=== PATIENT | male | born 1960 | race African-American/Black ===

== ENCOUNTER 2019-10-16 16:58 | Inpatient (IN) | payer OTHER ==
[2019-10-16 20:34] VITALS: BMI 24.9
--- NOTE | 2019-10-16 21:51 | HP ---
COWS - Scale Resting Pulse: 2= NC 101-120 Sweatin=Flushed/Facial Moisture Restless Observation: 1= Difficult to Sit Still Pupil Size: 1= Pupils >than Normal Bone or Joint Aches: 0= None Runny Nose/ Eye Tearin= Runny Nose/Eyes GI Upset > 30mins: 2= Nausea/Diarrhea (diarrhea x 3) Tremor Observation: 2= Slight Tremor Visible Yawning Observation: 2= >3x During Session Anxiety or Irritability: 2=Irritable/Anxious Goose Flesh Skin: 0=Smooth Skin COWS Score: 16 CIWA Score - Admission Criteria OASAS Guidelines: Admission for Medically Managed Detox: Requires at least one of the followin. CIWA greater than 12 2. Seizures within the past 24 hours 3. Delirium tremens within the past 24 hours 4. Hallucinations within the past 24 hours 5. Acute intervention needed for co occurring medical disorder 6. Acute intervention needed for co occurring psychiatric disorder 7. Severe withdrawal that cannot be handled at a lower level of care (continued vomiting, continued diarrhea, abnormal vital signs) requiring intravenous medication and/or fluids 8. Admitting History and Physical - Smoking History Smoking history: Current every day smoker Have you smoked in the past 12 months: Yes Aproximately how many cigarettes per day: 10 Admission ROS [facility] Chief Complaint: Seeking admission to detox from heroin Allergies/Adverse Reactions: Allergies Allergy/AdvReac Type Severity Reaction Status Date / Time No Known Allergies Allergy Verified 10/16/19 20:24 History of Present Illness: 59 years old male with a long history of heroin dependence (since age 15 years) is seeking admission to detox. This is his first admission to [facility] and he reports that his last admission was at [facility]. He reports use of 10 bags of heroin daily and states that he drinks socially once in a while and had only a can of beer today. He has medical history of DM type 2, hypertension, BPH, Hyperlipidemia and psych. history of anxiety and depression. He denies + eye applications tester, alcohol related seizures, blackouts and overdose. He is employed with [employer], lives with his and denies legal issues Exam Limitations: No Limitations - Ebola screening Have you traveled outside of the country in the last 21 days: No Have you had contact with anyone from an Ebola affected area: No Have you been sick,other than usual withdrawal symptoms: No - Review of Systems Constitutional: Chills, Malaise, Changes in sleep EENT: reports: No Symptoms Reported Respiratory: reports: No Symptoms reported Cardiac: reports: No Symptoms Reported GI: reports: Diarrhea (x 3), Nausea, Poor Appetite, Poor Fluid Intake, Abdominal cramping : reports: No Symptoms Reported Musculoskeletal: reports: No Symptoms Reported Integumentary: reports: Dryness, Flushing Neuro: reports: Tremors Endocrine: reports: No Symptoms Reported Hematology: reports: No Symptoms Reported Psychiatric: reports: Mood/Affect Appropiate, Orientated x3 Other Systems: Reviewed and Negative Patient History - Patient Medical History Hx Anemia: No Hx Asthma: No Hx Chronic Obstructive Pulmonary Disease (COPD): No Hx Cancer: No Hx Cardiac Disorders: No Hx Hypertension: Yes (Lisinopril) Hx Hypercholesterolemia: Yes (Lipitor) Hx Pacemaker: No Hx Seizures: No Hx Dementia: No Hx Diabetes: Yes Hx Gastrointestinal Disorders: No Hx Liver Disease: No Hx Genitourinary Disorders: Yes (BPH) Hx Sexually Transmitted Disorders: No Hx Renal Disease (ESRD): No Hx Thyroid Disease: No Hx Human Immunodeficiency Virus (HIV): No (Negative 2019) Hx Hepatitis C: No Hx Depression: Yes (+ anxiety- not on medication) Hx Suicide Attempt: No (Denies suicidal ideation at this time) Hx Bipolar Disorder: No Hx Schizophrenia: No - Patient Surgical History Past Surgical History: Yes Hx Orthopedic Surgery: Yes (Lumbofusion 10 years ago) Anesthesia Reaction: No - PPD History Previous Implant?: Yes Documented Results: Negative w/o proof Implanted On Prior R Admission?: No PPD to be Administered?: Yes - Reproductive History Patient is a Female of Child Bearing Age (11 -55 yrs old): No (Male) - Smoking Cessation Smoking history: Current every day smoker Have you smoked in the past 12 months: Yes Aproximately how many cigarettes per day: 10 Hx Chewing Tobacco Use: No Initiated information on smoking cessation: Yes 'Breaking Loose' booklet given: 10/16/19 - Substance & Tx. History Hx Alcohol Use: Yes Hx Substance Use: Yes Substance Use Type: Cocaine, Heroin, Opiates Hx Substance Use Treatment: Yes ([facility].) - Substances abused Heroin Substance route: Inhalation Frequency: Daily Amount used: 10 BAGS Age of first use: 15 Date of last use: 10/16/19 Alcohol Substance route: Oral Frequency: 3-6 times per week Amount used: BEER- 1 16 oz.can of beer Age of first use: 15 Date of last use: 10/16/19 Admission Physical Exam [facility] - Vital Signs Vital Signs: Vital Signs - 24 hr 10/16/19 20:28 Temperature 97.6 F Pulse Rate 105 H Respiratory 18 Rate Blood Pressure 126/79 - Physical General Appearance: Yes: Moderate Distress, Tremorous, Irritable, Anxious HEENTM: Yes: Within Normal Limits, Nasal Congestion Respiratory: Yes: Lungs Clear, Normal Breath Sounds, No Respiratory Distress Neck: Yes: Within Normal Limits Breast: Yes: Breast Exam Deferred Cardiology: Yes: Tachycardia Abdominal: Yes: Within Normal Limits, Protuberent Genitourinary: Yes: Within Normal Limits Back: Yes: Normal Inspection Musculoskeletal: Yes: Within Normal Limits Extremities: Yes: Tremors Neurological: Yes: Within Normal Limits, Alert, Normal Response Integumentary: Yes: Warm Lymphatic: Yes: Within Normal Limits - Diagnostic (1) Opioid dependence with withdrawal Current Visit: Yes Status: Acute (2) DM type 2 (diabetes mellitus, type 2) Current Visit: Yes Status: Chronic Qualifiers: Diabetes mellitus alf insulin use: unspecified termite treater helper insulin use status (3) Hypertension Current Visit: Yes Status: Chronic Qualifiers: Hypertension type: essential hypertension Qualified Code(s): I10 - Essential (primary) hypertension (4) Depression Current Visit: Yes Status: Resolved Qualifiers: Depression Type: unspecified Qualified Code(s): F32.9 - Major depressive disorder, single episode, unspecified (5) Anxiety Current Visit: Yes Status: Chronic (6) Hyperlipidemia Current Visit: Yes Status: Chronic Qualifiers: Hyperlipidemia type: unspecified Qualified Code(s): E78.5 - Hyperlipidemia, unspecified (7) BPH (benign prostatic hyperplasia) Current Visit: Yes Status: Chronic Qualifiers: Lower urinary tract symptom presence: unspecified whether lower urinary tract symptoms present Qualified Code(s): N40.0 - Benign prostatic hyperplasia without lower urinary tract symptoms Cleared for Admission [facility] - Detox or Rehab [facility] Level of Care: Medically Managed Detox Regimen/Protocol: Methadone Claeared for Rehab Admission: No Breathalyzer - Breathalyzer Breathalyzer: 0 Urine Drug Screen - Test Device Lot number: [id number] Expiration date: 12/17/20 - Control Is test valid?: Yes - Results Drug screen NEGATIVE: No Urine drug screen results: YONNY-Cocaine, FEN-Fentanyl, MOP-Opiates, MTD-Methadone Inpatient Rehab Admission - Rehab Decision to Admit Inpatient rehab admission?: No
[2019-10-16] MEDS ORDERED: MAGNESIUM HYDROX 2400MG/30ML ORAL SUSPENSION 30 ML CUP PO PRN (22:59)
[2019-10-16] MEDS ORDERED: ACETAMINOPHEN 325 MG TABLET (FP) PO PRN ×2 (22:59)
[2019-10-16] MEDS ORDERED: METHADONE HCL 10 MG TABLET (FOR DETOX USE ONLY) PO ONE (22:59)
[2019-10-16] MEDS ORDERED: cloNIDine HCL 0.1 MG TABLET PO PRN (22:59)
[2019-10-16] MEDS ORDERED: MAG HYDROX/AL HYDROX/SIMETH 30 ML UNIT-DOSE CUP PO PRN (22:59)
[2019-10-16] MEDS ORDERED: METHOCARBAMOL 500 MG TABLET PO PRN (22:59)
[2019-10-16] MEDS ORDERED: MENTHOL/PHENOL 1 EACH UD MM PRN (22:59)
[2019-10-16] MEDS ORDERED: MAGNESIUM CITRATE 300 ML BOTTLE PO PRN (22:59)
[2019-10-16] MEDS ORDERED: ONDANSETRON *ODT* 4 MG TABLET SL ONE (22:59)
[2019-10-16] MEDS ORDERED: IBUPROFEN 400 MG TABLET (FP) PO PRN (22:59)
[2019-10-16] MEDS ORDERED: NICOTINE POLACRILEX 2 MG GUM BUC PRN (22:59)
[2019-10-16] MEDS ORDERED: BISMUTH SUBSALICYLATE 524 MG/30 ML UD PO PRN (22:59)
[2019-10-17] MEDS: metFORMIN HCL 500 MG TABLET (FP) PO SCH ×2 (06:43→16:41)
[2019-10-17] MEDS ORDERED: METHADONE HCL 10 MG TABLET (FOR DETOX USE ONLY) ONE (08:39)
[2019-10-17] MEDS ORDERED: METHADONE HCL 5 MG TABLET (FOR DETOX USE ONLY) ONE (08:39)
[2019-10-17] MEDS ORDERED: METHADONE (DETOX) 20 MG, METHADONE (DETOX) 5 MG PO ONE (10:00)
[2019-10-17] MEDS ORDERED: PATIENT'S OWN MEDICATION (NON-FORMULARY) (Lisinopril [Prinivil -] 20 MG) PO SCH (10:00)
--- NOTE | 2019-10-17 10:13 | EKG ---
Test Reason : Blood Pressure : / mmHG Vent. Rate : 089 BPM Atrial Rate : 089 BPM P-R Int : 152 ms QRS Dur : 080 ms QT Int : 356 ms P-R-T Axes : 057 032 001 degrees QTc Int : 433 ms NORMAL SINUS RHYTHM SEPTAL INFARCT , AGE UNDETERMINED ABNORMAL ECG NO PREVIOUS ECGS AVAILABLE Confirmed by Soy Yousif MD ([id number]) on 10/17/2019 10:13:42 AM Referred By: Confirmed By:Soy Yousif MD
[2019-10-17] MEDS: amLODIPine BESYLATE 10 MG TABLET (FP) PO SCH (10:19)
[2019-10-17] MEDS: LISINOPRIL 20 MG TABLET (FP) PO SCH (10:19)
[2019-10-17] MEDS: PRENATAL VITAMINS W/ FOLIC ACID TABLET (FP) PO SCH (10:20)
[2019-10-17] MEDS: ASPIRIN 81 MG CHEWABLE TABLETS PO SCH (10:20)
[2019-10-17] MEDS: hydrOXYzine PAMOATE 25 MG CAPSULE (FP) PO PRN ×2 (10:20→21:04)
[2019-10-17] MEDS: TAMSULOSIN HCL 0.4 MG CAP PO SCH (10:21)
[2019-10-17] MEDS: NICOTINE 14 MG/24 HOURS TOPICAL PATCH TD SCH (10:22)
[2019-10-17 11:27] LABS: HEMATOCRIT 34.8 % (35.4-49); HEMOGLOBIN 11.7 GM/dL (11.7-16.9); MCH 31.8 pg (25.7-33.7); MCHC 33.5 g/dl (32.0-35.9); MEAN CELL VOLUME 94.9 fl (80-96); MEAN PLT VOLUME 9.7 fl (7.5-11.1); PLATELET COUNT 182 K/MM3 (134-434); RBC 3.67 M/mm3 (4.00-5.60); RDW 13.3 % (11.9-15.9); WHITE BLOOD COUNT 5.2 K/mm3 (4.0-10.0)
[2019-10-17 11:35] LABS: ALBUMIN 3.2 g/dl (3.4-5.0); BILIRUBIN,TOTAL 0.8 mg/dL (0.2-1); BLOOD UREA NITROGEN 14.9 mg/dL (7-18); CALCIUM 8.8 mg/dL (8.5-10.1); CREATININE 1.1 mg/dL (0.55-1.3); POTASSIUM 4.3 mmol/L (3.5-5.1); TOT PROT 6.7 g/dl (6.4-8.2)
--- NOTE | 2019-10-17 11:36 | PN ---
BHS COWS - Scale Resting Pulse: 1= RI 81-100 Sweatin= Chills/Flushing Restless Observation: 0= Sits Still Pupil Size: 0= Normal to Room Light Bone or Joint Aches: 4=Acute Joint/Muscle Pain Runny Nose/ Eye Tearin= None GI Upset > 30mins: 0= None Tremor Observation of Outstretched Hands: 1= Tremor [place], Not Seen Yawning Observation: 1= 1-2x During Session Anxiety or Irritability: 2=Irritable/Anxious Goose Flesh Skin: 0=Smooth Skin COWS Score: 10 BHS Progress Note (SOAP) Subjective: Pt is a 59 y/o male admitted to detox for withdrawal sx from heroin. On Methadone regimen. As per H/H pt also drinking one can of beer 3-6x/week. Objective: 10/17/19 11:33 Vital Signs - 24 hr 10/16/19 10/17/19 10/17/19 20:28 00:10 00:35 Temperature 97.6 F 97.8 F Pulse Rate 105 H 98 H Respiratory 18 20 Rate Blood Pressure 126/79 152/86 O2 Sat by Pulse 97 Oximetry (%) 10/17/19 10/17/19 10/17/19 03:30 06:30 10:09 Temperature 98 F Pulse Rate 93 H Respiratory 18 18 Rate Blood Pressure 160/99 154/83 O2 Sat by Pulse 97 Oximetry (%) 10/17/19 11:15 Temperature 98.1 F Pulse Rate 91 H Respiratory 16 Rate Blood Pressure 171/96 H O2 Sat by Pulse 95 Oximetry (%) Laboratory Tests 10/17/19 10/17/19 06:41 08:15 WBC 5.2 RBC 3.67 L Hgb 11.7 Hct 34.8 L MCV 94.9 MCH 31.8 MCHC 33.5 RDW 13.3 Plt Count 182 MPV 9.7 POC Glucometer 256 other labs pending Assessment: 10/17/19 11:33 withdrawal sx alert o x 3 nad oob ambulating with steady gait Plan: cont detox maintain safety increase po fluids Valium prn
[2019-10-17] MEDS: THIAMINE HCL 100 MG TABLET (FP) PO SCH (21:03)
[2019-10-17] MEDS: ATORVASTATIN CA 20 MG TABLET (FP) PO SCH (21:04)
[2019-10-17] MEDS: MELATONIN 5 MG TABLETS PO SCH (21:04)
[2019-10-17] MEDS: diazePAM 5 MG TABLET PO PRN (21:05)
[2019-10-18] MEDS: metFORMIN HCL 500 MG TABLET (FP) PO SCH ×2 (06:25→16:33)
[2019-10-18] MEDS ORDERED: METHADONE HCL 10 MG TABLET (FOR DETOX USE ONLY) PO ONE (10:00)
[2019-10-18] MEDS: NICOTINE 14 MG/24 HOURS TOPICAL PATCH TD SCH (10:16)
[2019-10-18] MEDS: TAMSULOSIN HCL 0.4 MG CAP PO SCH (10:16)
[2019-10-18] MEDS: amLODIPine BESYLATE 10 MG TABLET (FP) PO SCH (10:16)
[2019-10-18] MEDS: PRENATAL VITAMINS W/ FOLIC ACID TABLET (FP) PO SCH (10:16)
[2019-10-18] MEDS: ASPIRIN 81 MG CHEWABLE TABLETS PO SCH (10:16)
[2019-10-18] MEDS: LISINOPRIL 20 MG TABLET (FP) PO SCH (10:16)
--- NOTE | 2019-10-18 11:22 | PN ---
BHS COWS - Scale Resting Pulse: 1= IN 81-100 Sweatin= Chills/Flushing Restless Observation: 3= Extraneous Movement Pupil Size: 0= Normal to Room Light Bone or Joint Aches: 4=Acute Joint/Muscle Pain Runny Nose/ Eye Tearin= None GI Upset > 30mins: 0= None Tremor Observation of Outstretched Hands: 1= Tremor [place], Not Seen Yawning Observation: 0= None Anxiety or Irritability: 2=Irritable/Anxious Goose Flesh Skin: 0=Smooth Skin COWS Score: 12 BHS Progress Note (SOAP) Subjective: c/o anxiety irritability body/bone aches Objective: 10/18/19 11:23 Vital Signs 10/18/19 10/18/19 10/18/19 03:30 06:22 09:32 Temperature 97.3 F L 98.9 F Pulse Rate 100 H 86 Respiratory 16 18 16 Rate Blood Pressure 158/86 157/89 O2 Sat by Pulse 96 96 Oximetry (%) Laboratory Tests 10/17/19 10/17/19 10/17/19 06:41 08:15 08:15 WBC 5.2 RBC 3.67 L Hgb 11.7 Hct 34.8 L MCV 94.9 MCH 31.8 MCHC 33.5 RDW 13.3 Plt Count 182 MPV 9.7 Sodium Potassium Chloride Carbon Dioxide Anion Gap BUN Creatinine Est GFR (CKD-EPI)AfAm Est GFR (CKD-EPI)NonAf POC Glucometer 256 Random Glucose Calcium Total Bilirubin AST ALT Alkaline Phosphatase Total Protein Albumin Syphilis Serology Non-reactive 10/17/19 10/17/19 10/18/19 08:15 16:39 06:48 WBC RBC Hgb Hct MCV MCH MCHC RDW Plt Count MPV Sodium 139 Potassium 4.3 Chloride 105 Carbon Dioxide 32 Anion Gap 3 L BUN 14.9 Creatinine 1.1 Est GFR (CKD-EPI)AfAm 83.53 Est GFR (CKD-EPI)NonAf 72.07 POC Glucometer 198 159 Random Glucose 258 H Calcium 8.8 Total Bilirubin 0.8 AST 9 L ALT 11 L Alkaline Phosphatase 99 Total Protein 6.7 Albumin 3.2 L Syphilis Serology Assessment: 10/18/19 11:23 withdrawal sx Plan: cont detox increase po fluids maintain safety
--- NOTE | 2019-10-18 13:39 | CONSULT ---
[facility] Psychiatric Consult - Data Date of interview: 10/18/19 Identifying data: Mr Hernandez is a 59 years old Black male seeking detox treatment for alcohol and opioid Substance Abuse History: Reports history of alcohol and heroin use. Refer to addiction counselor's summary for further information Medical History: Significant for hypertension, dyslipidemia, type 2 diabees mellitus, BPH and history of lumbat fusion 10 years ago Psychiatric History: Patient was approached by both PHLEBOTOMY DIRECTOR and story writer yesterday and he said that he was too tired.He was approached today in his room and he told story writer:" I don't want to see psychiatrist"
--- NOTE | 2019-10-18 15:47 | PN ---
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 Last taken 10/16/19 and verified by keno writer / runner and nurse Angely-pt brought own bottle of medication last filled on 09/28/19 #90 with [address] Aly, [place], [place](saved in security safe). Pt reports takes it for pain management. P:Restart Gabapentin 800 mg po TID. Pt will not need any Rx on discharge as his own med is saved in his property.
[2019-10-18] MEDS: THIAMINE HCL 100 MG TABLET (FP) PO SCH (21:53)
[2019-10-18] MEDS: MELATONIN 5 MG TABLETS PO SCH (21:53)
[2019-10-18] MEDS: ATORVASTATIN CA 20 MG TABLET (FP) PO SCH (21:53)
[2019-10-18] MEDS: GABAPENTIN 400 MG CAPSULE PO SCH (21:53)
[2019-10-18] MEDS: diazePAM 5 MG TABLET PO PRN (21:55)
[2019-10-19] MEDS: GABAPENTIN 400 MG CAPSULE PO SCH ×3 (06:41→22:05)
[2019-10-19] MEDS: metFORMIN HCL 500 MG TABLET (FP) PO SCH ×2 (06:41→17:22)
[2019-10-19] MEDS ORDERED: METHADONE HCL 5 MG TABLET (FOR DETOX USE ONLY) ONE (08:53)
[2019-10-19] MEDS ORDERED: METHADONE HCL 10 MG TABLET (FOR DETOX USE ONLY) ONE (08:53)
[2019-10-19] MEDS ORDERED: METHADONE (DETOX) 10 MG, METHADONE (DETOX) 5 MG PO ONE (10:00)
[2019-10-19] MEDS: LISINOPRIL 20 MG TABLET (FP) PO SCH (10:15)
[2019-10-19] MEDS: TAMSULOSIN HCL 0.4 MG CAP PO SCH (10:15)
[2019-10-19] MEDS: PRENATAL VITAMINS W/ FOLIC ACID TABLET (FP) PO SCH (10:15)
[2019-10-19] MEDS: ASPIRIN 81 MG CHEWABLE TABLETS PO SCH (10:15)
[2019-10-19] MEDS: amLODIPine BESYLATE 10 MG TABLET (FP) PO SCH (10:15)
[2019-10-19] MEDS: NICOTINE 14 MG/24 HOURS TOPICAL PATCH TD SCH (10:17)
--- NOTE | 2019-10-19 11:06 | PN ---
BHS COWS - Scale Resting Pulse: 0= VA 80 or Below Sweatin= Chills/Flushing Restless Observation: 0= Sits Still Pupil Size: 0= Normal to Room Light Bone or Joint Aches: 4=Acute Joint/Muscle Pain Runny Nose/ Eye Tearin= None GI Upset > 30mins: 0= None Tremor Observation of Outstretched Hands: 1= Tremor [place], Not Seen Yawning Observation: 1= 1-2x During Session Anxiety or Irritability: 1=Feels Anxious/Irritable Goose Flesh Skin: 0=Smooth Skin COWS Score: 8 BHS Progress Note (SOAP) Subjective: Anxiety body aches Fatigue Objective: 10/19/19 11:05 Vital Signs - 8 hr 10/19/19 10/19/19 06:33 06:42 Temperature 98.3 F 98.3 F Pulse Rate 79 79 Respiratory 18 18 Rate Blood Pressure 131/80 131/80 O2 Sat by Pulse 95 Oximetry (%) Laboratory Tests 10/16/19 10/17/19 10/17/19 08:30 06:41 08:15 WBC RBC Hgb Hct MCV MCH MCHC RDW Plt Count MPV Sodium Potassium Chloride Carbon Dioxide Anion Gap BUN Creatinine Est GFR (CKD-EPI)AfAm Est GFR (CKD-EPI)NonAf POC Glucometer 256 Random Glucose Calcium Total Bilirubin AST ALT Alkaline Phosphatase Total Protein Albumin Syphilis Serology Non-reactive COVID-19 (MASSIEL) Not detected 10/17/19 10/17/19 10/17/19 08:15 08:15 16:39 WBC 5.2 RBC 3.67 L Hgb 11.7 Hct 34.8 L MCV 94.9 MCH 31.8 MCHC 33.5 RDW 13.3 Plt Count 182 MPV 9.7 Sodium 139 Potassium 4.3 Chloride 105 Carbon Dioxide 32 Anion Gap 3 L BUN 14.9 Creatinine 1.1 Est GFR (CKD-EPI)AfAm 83.53 Est GFR (CKD-EPI)NonAf 72.07 POC Glucometer 198 Random Glucose 258 H Calcium 8.8 Total Bilirubin 0.8 AST 9 L ALT 11 L Alkaline Phosphatase 99 Total Protein 6.7 Albumin 3.2 L Syphilis Serology COVID-19 (MASSIEL) 10/18/19 10/18/19 10/19/19 06:48 16:31 06:40 WBC RBC Hgb Hct MCV MCH MCHC RDW Plt Count MPV Sodium Potassium Chloride Carbon Dioxide Anion Gap BUN Creatinine Est GFR (CKD-EPI)AfAm Est GFR (CKD-EPI)NonAf POC Glucometer 159 330 167 Random Glucose Calcium Total Bilirubin AST ALT Alkaline Phosphatase Total Protein Albumin Syphilis Serology COVID-19 (MASSIEL) labs noted Alert o x 3 nad oob ambulating with steady gait Assessment: 10/19/19 11:06 withdrawal sx chronic pain Plan: cont detox increase po fluids maintain safety
--- NOTE | 2019-10-19 14:09 | EKG ---
Test Reason : Blood Pressure : / mmHG Vent. Rate : 091 BPM Atrial Rate : 091 BPM P-R Int : 144 ms QRS Dur : 092 ms QT Int : 366 ms P-R-T Axes : 049 032 006 degrees QTc Int : 450 ms NORMAL SINUS RHYTHM NORMAL ECG NO PREVIOUS ECGS AVAILABLE Confirmed by LEILA POLO MD ([id number]) on 10/19/2019 2:09:20 PM Referred By: Confirmed By:LEILA POLO MD
[2019-10-19 15:19] LABS: HEMATOCRIT 37.2 % (35.4-49); HEMOGLOBIN 12.6 GM/dL (11.7-16.9); MCH 31.8 pg (25.7-33.7); MEAN CELL VOLUME 93.7 fl (80-96); MEAN PLT VOLUME 9.4 fl (7.5-11.1); PLATELET COUNT 203 K/MM3 (134-434); RBC 3.97 M/mm3 (4.00-5.60); RDW 13.5 % (11.9-15.9); WHITE BLOOD COUNT 8.2 K/mm3 (4.0-10.0)
[2019-10-19 15:26] LABS: INR 1.02 (0.83-1.09)
[2019-10-19 15:36] LABS: ALBUMIN 3.3 g/dl (3.4-5.0); BLOOD UREA NITROGEN 15.3 mg/dL (7-18); CALCIUM 8.9 mg/dL (8.5-10.1); CREATININE 1.1 mg/dL (0.55-1.3); POTASSIUM 4.4 mmol/L (3.5-5.1); TOT PROT 6.8 g/dl (6.4-8.2)
[2019-10-19 15:42] LABS: BILIRUBIN,TOTAL 0.5 mg/dL (0.2-1)
[2019-10-19 16:32] LABS: URINE APPEARANCE CLEAR; URINE BILIRUBIN NEGATIVE (NEGATIVE); URINE COLOR YELLOW; URINE GLUCOSE (UA) 3+ (NEGATIVE); URINE KETONE NEGATIVE (NEGATIVE); URINE LEUK ESTERASE NEGATIVE (NEGATIVE); URINE NITRITE NEGATIVE (NEGATIVE); URINE PROTEIN NEGATIVE (NEGATIVE)
[2019-10-19] MEDS ORDERED: INSULIN (NOVOLOG) ASPART 100 UNITS/ML 10ML VIAL SQ ONE (17:58)
--- NOTE | 2019-10-19 18:01 | PN ---
[facility] Progress Note Note: Patient's blood sugar level was 418mg/dl. Patient is asymptomatic Vital Signs Temperature 98.2 F 10/19/19 17:15 Pulse Rate 101 H 10/19/19 17:15 Respiratory Rate 18 10/19/19 17:15 Blood Pressure 100/67 10/19/19 17:15 O2 Sat by Pulse Oximetry (%) 98 10/19/19 13:14 Laboratory Last Values WBC 8.2 K/mm3 (4.0-10.0) 10/19/19 10:00 RBC 3.97 M/mm3 (4.00-5.60) L 10/19/19 10:00 Hgb 12.6 GM/dL (11.7-16.9) 10/19/19 10:00 Hct 37.2 % (35.4-49) 10/19/19 10:00 MCV 93.7 fl (80-96) 10/19/19 10:00 MCH 31.8 pg (25.7-33.7) 10/19/19 10:00 MCHC 34.0 g/dl (32.0-35.9) 10/19/19 10:00 RDW 13.5 % (11.9-15.9) 10/19/19 10:00 Plt Count 203 K/MM3 (134-434) 10/19/19 10:00 MPV 9.4 fl (7.5-11.1) 10/19/19 10:00 PT with INR 12.00 SEC (9.7-13.0) 10/19/19 10:00 INR 1.02 (0.83-1.09) 10/19/19 10:00 Sodium 137 mmol/L (136-145) 10/19/19 10:00 Potassium 4.4 mmol/L (3.5-5.1) 10/19/19 10:00 Chloride 102 mmol/L (98-107) 10/19/19 10:00 Carbon Dioxide 28 mmol/L (21-32) 10/19/19 10:00 Anion Gap 7 MMOL/L (8-16) L 10/19/19 10:00 BUN 15.3 mg/dL (7-18) 10/19/19 10:00 Creatinine 1.1 mg/dL (0.55-1.3) 10/19/19 10:00 Est GFR (CKD-EPI)AfAm 83.53 10/19/19 10:00 Est GFR (CKD-EPI)NonAf 72.07 10/19/19 10:00 POC Glucometer 418 UNITS (80-120) 10/19/19 17:21 Random Glucose 301 mg/dL (74-106) H 10/19/19 10:00 Calcium 8.9 mg/dL (8.5-10.1) 10/19/19 10:00 Total Bilirubin 0.5 mg/dL (0.2-1) 10/19/19 10:00 AST 6 U/L (15-37) L 10/19/19 10:00 ALT 10 U/L (13-61) L 10/19/19 10:00 Alkaline Phosphatase 103 U/L (45-117) 10/19/19 10:00 Total Protein 6.8 g/dl (6.4-8.2) 10/19/19 10:00 Albumin 3.3 g/dl (3.4-5.0) L 10/19/19 10:00 Urine Color Yellow 10/19/19 12:20 Urine Appearance Clear 10/19/19 12:20 Urine pH 8.0 (5.0-8.0) 10/19/19 12:20 Ur Specific [place] 1.033 (1.010-1.035) 10/19/19 12:20 Urine Protein Negative (NEGATIVE) 10/19/19 12:20 Urine Glucose (UA) 3+ (NEGATIVE) H 10/19/19 12:20 Urine Ketones Negative (NEGATIVE) 10/19/19 12:20 Urine Blood Negative (NEGATIVE) 10/19/19 12:20 Urine Nitrite Negative (NEGATIVE) 10/19/19 12:20 Urine Bilirubin Negative (NEGATIVE) 10/19/19 12:20 Urine Urobilinogen 2.0 mg/dL (0.2-1.0) 10/19/19 12:20 Ur Leukocyte Esterase Negative (NEGATIVE) 10/19/19 12:20 Syphilis Serology Non-reactive (NONREACTIVE) 10/17/19 08:15 COVID-19 (MASSIEL) Not detected (Not Detected) 10/16/19 08:30 Action: Insulin Novolog 8 units SQ ordered
[2019-10-19] MEDS: THIAMINE HCL 100 MG TABLET (FP) PO SCH (22:05)
[2019-10-19] MEDS: ATORVASTATIN CA 20 MG TABLET (FP) PO SCH (22:05)
[2019-10-19] MEDS: hydrOXYzine PAMOATE 25 MG CAPSULE (FP) PO PRN (22:05)
[2019-10-19] MEDS: MELATONIN 5 MG TABLETS PO SCH (22:06)
[2019-10-19] MEDS: diazePAM 5 MG TABLET PO PRN (22:56)
[2019-10-20] MEDS: GABAPENTIN 400 MG CAPSULE PO SCH (05:56)
[2019-10-20] MEDS: metFORMIN HCL 500 MG TABLET (FP) PO SCH (06:00)
[2019-10-20 06:32] VITALS: TEMP 98.1
[2019-10-20] MEDS: TAMSULOSIN HCL 0.4 MG CAP PO SCH (09:45)
[2019-10-20] MEDS: LISINOPRIL 20 MG TABLET (FP) PO SCH (09:46)
[2019-10-20] MEDS: ASPIRIN 81 MG CHEWABLE TABLETS PO SCH (09:46)
[2019-10-20] MEDS: amLODIPine BESYLATE 10 MG TABLET (FP) PO SCH (09:46)
[2019-10-20] MEDS: PRENATAL VITAMINS W/ FOLIC ACID TABLET (FP) PO SCH (09:46)
[2019-10-20] MEDS: NICOTINE 14 MG/24 HOURS TOPICAL PATCH TD SCH (09:46)
[2019-10-20] MEDS ORDERED: METHADONE HCL 10 MG TABLET (FOR DETOX USE ONLY) PO ONE (10:00)
[2019-10-20 11:37] VITALS: BP 113/69; PULSE 110
[2019-10-21] MEDS ORDERED: METHADONE HCL 5 MG TABLET (FOR DETOX USE ONLY) PO ONE (06:00)
== END 2019-10-20 10:05 | disposition home or self-care (01) | DRG 773 ==
LOC: YASAS 16:58 → Y5N DETOX 22:42
PROVIDERS: ADMIT Allergy & Immunology; ATTEND Allergy & Immunology
PROC: HZ2ZZZZ Detoxification Services for Substance Abuse Treatment (ICD-10-PCS; principal; 2019-10-16)
DX: F11.23 Opioid dependence with withdrawal (principal); F10.230 Alcohol dependence with withdrawal, uncomplicated; F17.210 Nicotine dependence, cigarettes, uncomplicated; F41.8 Other specified anxiety disorders; F32.9 Major depressive disorder, single episode, unspecified; G62.9 Polyneuropathy, unspecified; I10 Essential (primary) hypertension; E11.9 Type 2 diabetes mellitus without complications; Z79.4 Long term (current) use of insulin; E78.5 Hyperlipidemia, unspecified; N40.0 Benign prostatic hyperplasia without lower urinary tract symptoms; G97.82 Other postprocedural complications and disorders of nervous system; Z98.1 Arthrodesis status
CPT/HCPCS: 36415; 80053; 81003; 82962; 85027; 85610; 86780; 93005; 93010; U0003

== ENCOUNTER 2020-06-13 16:58 | Inpatient (IN) | payer OTHER ==
[2020-06-13] MEDS ORDERED: ONDANSETRON *ODT* 4 MG TABLET SL PRN (21:49)
[2020-06-13] MEDS ORDERED: ACETAMINOPHEN 325 MG TABLET (FP) PO PRN ×2 (21:49)
[2020-06-13] MEDS ORDERED: chlordiazePOXIDE HCL 25 MG CAPSULE PO PRN (21:49)
[2020-06-13] MEDS ORDERED: MAGNESIUM CITRATE 300 ML BOTTLE PO PRN (21:49)
[2020-06-13] MEDS ORDERED: MAGNESIUM HYDROX 2400MG/30ML ORAL SUSPENSION 30 ML CUP PO PRN (21:49)
[2020-06-13] MEDS ORDERED: NICOTINE POLACRILEX 2 MG GUM BUC PRN (21:49)
[2020-06-13] MEDS ORDERED: METHADONE HCL 10 MG TABLET (FOR DETOX USE ONLY) PO ONE (21:49)
[2020-06-13] MEDS ORDERED: MAG HYDROX/AL HYDROX/SIMETH 30 ML UNIT-DOSE CUP PO PRN (21:49)
[2020-06-13] MEDS ORDERED: MENTHOL/PHENOL 1 EACH UD MM PRN (21:49)
[2020-06-13] MEDS ORDERED: BISMUTH SUBSALICYLATE 524 MG/30 ML UD PO PRN (21:49)
[2020-06-13] MEDS ORDERED: METHOCARBAMOL 500 MG TABLET PO PRN (21:49)
[2020-06-13] MEDS ORDERED: IBUPROFEN 400 MG TABLET (FP) PO PRN (21:49)
[2020-06-13 22:08] VITALS: BMI 25.7
[2020-06-14] MEDS ORDERED: METHADONE HCL 10 MG TABLET (FOR DETOX USE ONLY) PO ONE (01:44)
[2020-06-14] MEDS ORDERED: cloNIDine HCL 0.1 MG TABLET PO PRN (01:44)
[2020-06-14] MEDS: MELATONIN 5 MG TABLETS PO SCH ×2 (01:46→22:59)
[2020-06-14] MEDS: THIAMINE HCL 100 MG TABLET (FP) PO SCH ×2 (01:49→22:59)
[2020-06-14] MEDS: chlordiazePOXIDE HCL 25 MG CAPSULE PO SCH ×5 (01:51→22:59)
[2020-06-14] MEDS ORDERED: INSULIN (NOVOLOG) ASPART 100 UNITS/ML 10ML VIAL SQ ONE (02:46)
[2020-06-14] MEDS ORDERED: INSULIN SLIDING SCALE (NOVOLOG) 1 VIAL SQ ONE (03:00)
[2020-06-14] MEDS: metFORMIN HCL 500 MG TABLET (FP) PO SCH ×2 (07:21→18:19)
[2020-06-14] MEDS ORDERED: METHADONE HCL 5 MG TABLET (FOR DETOX USE ONLY) PO ONE (10:00)
[2020-06-14] MEDS ORDERED: PATIENT'S OWN MEDICATION (NON-FORMULARY) (Lisinopril [Prinivil -] 40 MG Tablet) PO SCH (10:00)
[2020-06-14] MEDS ORDERED: METHADONE (DETOX) 20 MG, METHADONE (DETOX) 5 MG PO ONE (10:00)
[2020-06-14] MEDS: NICOTINE 14 MG/24 HOURS TOPICAL PATCH TD SCH (10:40)
[2020-06-14] MEDS: PRENATAL VITAMINS W/ FOLIC ACID TABLET (FP) PO SCH (10:40)
[2020-06-14] MEDS: ASPIRIN 81 MG CHEWABLE TABLETS PO SCH (10:40)
[2020-06-14] MEDS: amLODIPine BESYLATE 10 MG TABLET (FP) PO SCH (10:40)
[2020-06-14] MEDS: LISINOPRIL 20 MG TABLET PO SCH (10:40)
[2020-06-14 11:49] LABS: HEMATOCRIT 31.9 % (35.4-49); HEMOGLOBIN 11.1 GM/dL (11.7-16.9); MCHC 34.6 g/dl (32.0-35.9); MEAN CELL VOLUME 95.4 fl (80-96); MEAN PLT VOLUME 9.1 fl (7.5-11.1); PLATELET COUNT 158 K/MM3 (134-434); RBC 3.34 M/mm3 (4.00-5.60); RDW 13.6 % (11.9-15.9)
[2020-06-14 11:51] LABS: POTASSIUM 4.2 mmol/L (3.5-5.1)
[2020-06-14 12:09] LABS: ALBUMIN 2.9 g/dl (3.4-5.0); BLOOD UREA NITROGEN 17.3 mg/dL (7-18)
[2020-06-14 12:13] LABS: BILIRUBIN,TOTAL 0.3 mg/dL (0.2-1); CALCIUM 8.6 mg/dL (8.5-10.1); TOT PROT 5.8 g/dl (6.4-8.2)
[2020-06-14 12:14] LABS: CREATININE 1.1 mg/dL (0.55-1.3)
[2020-06-14 12:49] LABS: HIV INTERPRETATION NEGATIVE (NEGATIVE)
[2020-06-14] MEDS: cloNIDine HCL 0.1 MG TABLET PO PRN (18:22)
[2020-06-14] MEDS: INSULIN SLIDING SCALE (NOVOLOG) 1 VIAL SQ SCH (18:23)
[2020-06-14 18:40] LABS: PH,URINE 6.5 (5.0-8.0); URINE APPEARANCE CLEAR; URINE BILIRUBIN NEGATIVE (NEGATIVE); URINE COLOR YELLOW; URINE GLUCOSE (UA) 3+ (NEGATIVE); URINE KETONE NEGATIVE (NEGATIVE); URINE LEUK ESTERASE NEGATIVE (NEGATIVE); URINE NITRITE NEGATIVE (NEGATIVE); URINE PROTEIN NEGATIVE (NEGATIVE)
[2020-06-14] MEDS: ATORVASTATIN CA 20 MG TABLET (FP) PO SCH (22:58)
[2020-06-14] MEDS: GABAPENTIN 300 MG CAPSULE PO SCH (22:59)
[2020-06-15] MEDS: chlordiazePOXIDE HCL 25 MG CAPSULE PO SCH ×4 (06:01→23:07)
[2020-06-15] MEDS: metFORMIN HCL 500 MG TABLET (FP) PO SCH ×2 (06:02→17:18)
[2020-06-15] MEDS: cloNIDine HCL 0.1 MG TABLET PO PRN (06:02)
[2020-06-15] MEDS: INSULIN SLIDING SCALE (NOVOLOG) 1 VIAL SQ SCH ×2 (07:12→17:18)
[2020-06-15] MEDS ORDERED: METHADONE HCL 10 MG TABLET (FOR DETOX USE ONLY) ONE (09:33)
[2020-06-15] MEDS ORDERED: METHADONE HCL 5 MG TABLET (FOR DETOX USE ONLY) ONE (09:34)
[2020-06-15] MEDS ORDERED: METHADONE HCL 10 MG TABLET (FOR DETOX USE ONLY) PO ONE (10:00)
[2020-06-15] MEDS ORDERED: METHADONE (DETOX) 20 MG, METHADONE (DETOX) 5 MG PO ONE (10:00)
[2020-06-15] MEDS: GABAPENTIN 300 MG CAPSULE PO SCH ×2 (10:46→23:07)
[2020-06-15] MEDS: ASPIRIN 81 MG CHEWABLE TABLETS PO SCH (10:46)
[2020-06-15] MEDS: NICOTINE 14 MG/24 HOURS TOPICAL PATCH TD SCH (10:47)
[2020-06-15] MEDS: amLODIPine BESYLATE 10 MG TABLET (FP) PO SCH (10:47)
[2020-06-15] MEDS: LISINOPRIL 20 MG TABLET PO SCH (10:47)
[2020-06-15] MEDS: PRENATAL VITAMINS W/ FOLIC ACID TABLET (FP) PO SCH (10:47)
[2020-06-15] MEDS: MELATONIN 5 MG TABLETS PO SCH (23:07)
[2020-06-15] MEDS: THIAMINE HCL 100 MG TABLET (FP) PO SCH (23:07)
[2020-06-15] MEDS: ATORVASTATIN CA 20 MG TABLET (FP) PO SCH (23:07)
[2020-06-16] MEDS ORDERED: chlordiazePOXIDE HCL 10 MG CAPSULE PO PRN
[2020-06-16] MEDS: chlordiazePOXIDE HCL 10 MG CAPSULE PO SCH ×2 (05:28→11:30)
[2020-06-16] MEDS: metFORMIN HCL 500 MG TABLET (FP) PO SCH (06:20)
[2020-06-16] MEDS: INSULIN SLIDING SCALE (NOVOLOG) 1 VIAL SQ SCH (06:20)
[2020-06-16] MEDS ORDERED: METHADONE (DETOX) 10 MG, METHADONE (DETOX) 5 MG PO ONE (10:00)
[2020-06-16] MEDS ORDERED: METHADONE HCL 10 MG TABLET (FOR DETOX USE ONLY) PO ONE (10:00)
[2020-06-16 10:58] VITALS: BP 146/91; PULSE 92; TEMP 97.3
[2020-06-16] MEDS: ASPIRIN 81 MG CHEWABLE TABLETS PO SCH (11:29)
[2020-06-16] MEDS: NICOTINE 14 MG/24 HOURS TOPICAL PATCH TD SCH (11:30)
[2020-06-16] MEDS: LISINOPRIL 20 MG TABLET PO SCH (11:30)
[2020-06-16] MEDS: GABAPENTIN 300 MG CAPSULE PO SCH (11:30)
[2020-06-16] MEDS: PRENATAL VITAMINS W/ FOLIC ACID TABLET (FP) PO SCH (11:30)
[2020-06-16] MEDS: amLODIPine BESYLATE 10 MG TABLET (FP) PO SCH (11:30)
[2020-06-17] MEDS ORDERED: chlordiazePOXIDE HCL 10 MG CAPSULE PO SCH (05:00)
[2020-06-17] MEDS ORDERED: METHADONE HCL 10 MG TABLET (FOR DETOX USE ONLY) PO ONE (10:00)
[2020-06-17] MEDS ORDERED: METHADONE (DETOX) 10 MG, METHADONE (DETOX) 5 MG PO ONE (10:00)
[2020-06-18] MEDS ORDERED: chlordiazePOXIDE HCL 10 MG CAPSULE PO ONE (05:00)
[2020-06-18] MEDS ORDERED: METHADONE HCL 5 MG TABLET (FOR DETOX USE ONLY) PO ONE (06:00)
[2020-06-18] MEDS ORDERED: METHADONE HCL 10 MG TABLET (FOR DETOX USE ONLY) PO ONE (10:00)
[2020-06-19] MEDS ORDERED: METHADONE HCL 5 MG TABLET (FOR DETOX USE ONLY) PO ONE (06:00)
== END 2020-06-16 10:07 | disposition left against medical advice (07) | DRG 770 ==
LOC: YASAS 16:58 → Y3N 06-14 01:00
PROVIDERS: ADMIT Allergy & Immunology; ATTEND Allergy & Immunology
PROC: HZ2ZZZZ Detoxification Services for Substance Abuse Treatment (ICD-10-PCS; principal; 2020-06-14)
DX: F11.23 Opioid dependence with withdrawal (principal); F10.230 Alcohol dependence with withdrawal, uncomplicated; F17.210 Nicotine dependence, cigarettes, uncomplicated; F19.280 Other psychoactive substance dependence with psychoactive substance-induced anxiety disorder; F19.24 Other psychoactive substance dependence with psychoactive substance-induced mood disorder; F41.1 Generalized anxiety disorder; F32.9 Major depressive disorder, single episode, unspecified; D64.9 Anemia, unspecified; E11.42 Type 2 diabetes mellitus with diabetic polyneuropathy; E11.65 Type 2 diabetes mellitus with hyperglycemia; Z79.84 Long term (current) use of oral hypoglycemic drugs; E78.5 Hyperlipidemia, unspecified; I10 Essential (primary) hypertension; N40.0 Benign prostatic hyperplasia without lower urinary tract symptoms; H40.9 Unspecified glaucoma; R81 Glycosuria; Z90.49 Acquired absence of other specified parts of digestive tract; Z98.1 Arthrodesis status
CPT/HCPCS: 36415; 80053; 81003; 82962; 85027; 86780; 87389; C9803; J0735; U0003